=== PATIENT | female | born 1985 | race Two or more races ===

== ENCOUNTER 2019-05-12 09:38 | Observation (INO) | payer OTHER, MEDICAID ==
[~2019-05-12 09:38] MED LIST: FERR-7 PO; PREN-145 OR
== END 2019-05-12 10:39 | disposition home or self-care (01) | DRG 833 ==
LOC: LDRP 09:38
PROVIDERS: ADMIT Obstetrics & Gynecology; ATTEND Obstetrics & Gynecology
DX: O46.93 Antepartum hemorrhage, unspecified, third trimester (principal); O99.013 Anemia complicating pregnancy, third trimester; O99.333 Smoking (tobacco) complicating pregnancy, third trimester; F17.210 Nicotine dependence, cigarettes, uncomplicated; O26.893 Other specified pregnancy related conditions, third trimester; R11.2 Nausea with vomiting, unspecified; Z3A.39 39 weeks gestation of pregnancy
CPT/HCPCS: 59025; 81002; G0378

== ENCOUNTER 2019-05-14 17:50 | Inpatient (IN) | payer OTHER, MEDICAID ==
[~2019-05-14] VITALS: Ht 162.6 cm; Wt 68.0 kg
[2019-05-14] MEDS ORDERED: LACTATED RINGER'S 1,000 ML IV SCH (20:35)
[2019-05-14] MEDS ORDERED: LACT. RINGERS/OXYTOCIN 20UNITS 1,000 ML IV SCH (20:35)
--- NOTE | 2019-05-14 20:42 | NUR ---
IV insertion IV access obtained, via clean sterile technique by inserting 20 gauge catheter at after attempt(s). IV secured properly. No trauma to site. Patient tolerated procedure well.
[2019-05-14] MEDS ORDERED: METHYLERGONOVINE MALEATE 0.2 MG/ML AMP IM PRN (20:45)
[2019-05-14] MEDS ORDERED: CARBOPROST TROMETHAMINE 250 MCG/1ML VIAL IM PRN (20:45)
[2019-05-14] MEDS ORDERED: LIDOCAINE 2%HCL (LOCAL ANESTH.) INJ 20ML MDV IJ ONE (20:45)
[2019-05-14] MEDS ORDERED: PROMETHAZINE HCL 25 MG/ML 1ML IV PRN (20:45)
[2019-05-14] MEDS ORDERED: NALBUPHINE HCL 10 MG/1ml INJECTION IV PRN (20:45)
[2019-05-14] MEDS ORDERED: PHISODERM TOP SOLN 240ML BTL TOP PRN (20:45)
[2019-05-14] MEDS ORDERED: DERMOPLAST 60ML BOTTLE TOP PRN (20:45)
[2019-05-14] MEDS ORDERED: PENICILLIN G POT 5MIL/D5 50ML 50 ML IV ONE (20:45)
[2019-05-14] MEDS ORDERED: WITCH HAZEL-GLYCERIN PAD TOP PRN (20:45)
[2019-05-14] MEDS ORDERED: IBUPROFEN 600 MG TAB PO PRN (21:30)
[2019-05-14] MEDS: IBUPROFEN 600 MG TAB PO PRN (22:13)
[2019-05-14 22:52] LABS: Basophils # (auto) 0 uL; Basophils % (auto) 0.4 % (0.0-2.0); Eosinophils # (auto) 0.1 uL; Eosinophils % (auto) 0.5 % (0.0-7.0); Hematocrit 32.6 % (36.0-46.0); Hemoglobin 11.2 g/dL (12.2-16.2); Lymphocytes # (auto) 2.1 uL; Lymphocytes % (auto) 16.9 % (10.0-50.0); Mean Corpuscular Hemoglobin 33.3 pg (28.0-32.0); Mean Corpuscular Hgb Conc. 34.3 g/dL (32.0-36.0); Mean Corpuscular Volume 96.9 fL (80.0-100.0); Monocytes # (auto) 0.6 uL; Monocytes % (auto) 4.9 % (0.0-12.0); Neutrophils # (auto) 9.4 uL; Neutrophils % (auto) 77.3 % (37.0-80.0); Nucleated Red Blood Cells % 0.1 %; Platelet Count (auto) 196 10^3/uL (140-450); Red Blood Cells 3.37 10^6/uL (4.0-5.20); Red Cell Distribution Width 12.9 % (11.8-14.3); White Blood Cell 12.2 10^3/uL (4.4-10.8)
[2019-05-14 22:56] LABS: Albumin 2.5 g/dL (3.4-5.0); BUN/Creatinine Ratio 5.4; Calcium 7.8 mg/dL (8.5-10.1); Potassium 3.6 mmol/L (3.5-5.1)
[2019-05-14 22:58] LABS: Bilirubin, Total 0.5 mg/dL (0.2-1.0)
[2019-05-14 22:59] LABS: INR < 0.93 (0.9-1.15); Partial Thromboplastin Time 26.4 sec (23.64-32.05)
--- NOTE | 2019-05-14 23:35 | NUR ---
Ambulation: Patient OOB with standby assistance by RN. Patient ambulated to bathroom with steady gait. Patient able to void without difficulty. [facility] teaching provided with returned demonstration by patient. Clean gown provided and bed linen changed. Patient ambulated back to bed with steady gait and no distress noted. Voided 350 cc urine no clots passed.
[2019-05-15] MEDS ORDERED: PENICILLIN G POTASSIUM 2,500,000 UNITS in D5W 5% 50 ML IV SCH (00:45)
[2019-05-15 03:30] VITALS: BP 99/43
[2019-05-15 06:42] VITALS: BP 102/67
[2019-05-15] MEDS: IBUPROFEN 600 MG TAB PO PRN ×3 (07:52→20:12)
[2019-05-15 11:00] VITALS: BP 99/59
[2019-05-15] MEDS ORDERED: ACETAMINOPHEN 325 MG TAB PO PRN (12:45)
--- NOTE | 2019-05-15 13:49 | NUR ---
o/c note received a page to call [facility] and requesting transfer packet to be sent to them. I spoke to Lianna in L&D and asked her to fax transfer packet to [facility] at [phone]
[2019-05-15 15:15] VITALS: BP 100/62
--- NOTE | 2019-05-15 17:17 | NUR ---
IV removal IV DC'd with clean sterile technique, catheter fully intact. Pressure dressing applied to site. Patient tolerated well.
[2019-05-15 19:30] VITALS: BP 109/68
--- NOTE | 2019-05-15 19:30 | NUR ---
Opening Shift Note Received report and assumed care of patient, awake and alert. No S/S of distress/SOB or pain. Instructed to call for assist if needed and patient verbalized understanding. Will continue to monitor.
[2019-05-15 23:00] VITALS: BP 96/62
[2019-05-16 03:00] VITALS: BP 93/59
[2019-05-16 07:25] VITALS: BP 119/71
--- NOTE | 2019-05-16 10:27 | NUR ---
Discharge: Discharge instructions given as ordered. Pt encouraged to follow up with [facility] as instructed. All questions and concerns addressed. Patient verbalized understanding. Medication reconciliation completed and copy given to patient. . Patient encouraged to prepare to depart unit.
[2019-05-16 10:38] VITALS: BP 114/64
--- NOTE | 2019-05-16 11:00 | NUR ---
Discharge: Patient taken to vehicle ambulatory via steady gait, pt declined wheelchair with all personal belongings, accompanied by staff and family member. No distress noted at time of departure, no adverse changes in status since initial assessment.
[2019-05-17 05:07] LABS: RPR Non Reactive (Non Reactive)
[2019-05-17 06:06] LABS: Rubella Antibodies, IgG <0.90 index (Immune >0.99)
== END 2019-05-16 11:00 | disposition home or self-care (01) | DRG 807 ==
LOC: INTOOBSV 17:50 → OBSVTOIN 17:50 → UNDOADMOB 17:50 → LDRP 17:50 → OBSVTOIN 18:52 → INTOOBSV 18:52 → LDRP 22:57
PROVIDERS: ADMIT Specialist; ATTEND Specialist
PROC: 10E0XZZ Delivery of Products of Conception, External Approach (ICD-10-PCS; principal; 2019-05-14)
DX: O80 Encounter for full-term uncomplicated delivery (principal); Z37.0 Single live birth; Z3A.39 39 weeks gestation of pregnancy
CPT/HCPCS: 36415; 80053; 84112; 85025; 85610; 85730; 86592; 86703; 86762; 86850; 86900; 86901; 87340; G0378; J2540; J2590; J7060